=== PATIENT | male | born 1985 | race Caucasian/White ===

== ENCOUNTER 2021-12-27 13:46 | Emergency (ER) | payer SELFPAY ==
[~2021-12-27] VITALS: Ht 177.8 cm; Wt 121.6 kg
[2021-12-27 13:55] VITALS: BP 164/89
--- NOTE | 2021-12-27 14:45 | NUR ---
PT CALLED NOT FOUND IN LOBBY
--- NOTE | 2021-12-27 14:49 | NUR ---
PT CALLED, NOT FOUND IN LOBBY
--- NOTE | 2021-12-27 14:52 | NUR ---
PATIENT LEFT WITHOUT BEING SEEN BY DR. VELÁZQUEZ. NO FURTHER CARE PROVIDED FOR PATIENT.
== END 2021-12-27 14:52 | disposition left against medical advice (07) ==
LOC: MED 13:46
DX: R07.9 Chest pain, unspecified (principal); R20.0 Anesthesia of skin; Z53.21 Procedure and treatment not carried out due to patient leaving prior to being seen by health care provider
CPT/HCPCS: 93005

== ENCOUNTER 2022-05-10 22:06 | Emergency (ER) | payer BC ==
[~2022-05-10] VITALS: Ht 177.8 cm; Wt 118.8 kg
[2022-05-10 22:45] VITALS: BP 147/81
--- NOTE | 2022-05-10 22:48 | NUR ---
Patient taken to bed 12.
--- NOTE | 2022-05-10 23:00 | NUR ---
RECEIVED IN BED 12 WITH C/O C/O difficulty breathing x 4 days. Patient reported, had difficulty breathing, no cough, no congestion, no fever. 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
--- NOTE | 2022-05-10 23:10 | NUR ---
SWABS OBTAINED AND SENT TO LAB
[2022-05-11 00:38] LABS: RSV NEGATIVE (NEGATIVE)
[2022-05-11] MEDS ORDERED: TAM75 PO (00:49)
[2022-05-11] MEDS ORDERED: ACET-10509 PO (00:49)
[2022-05-11] MEDS ORDERED: ALBU0.0912 INH (00:49)
[2022-05-11 01:00] VITALS: BP 147/81
--- NOTE | 2022-05-11 01:00 | NUR ---
Patient discharged with v/s stable. Written and verbal after care instructions given and explained. Patient alert, oriented and verbalized understanding of instructions. Ambulatory with steady gait. All questions addressed prior to discharge. ID band removed. Patient advised to follow up with PMD. Rx of TYLENOL, PROVENTIL, TAMIFLU given. Patient educated on indication of medication including possible reaction and side effects. Opportunity to ask questions provided and answered.
== END 2022-05-11 01:00 | disposition home or self-care (01) ==
LOC: MED 22:06
DX: J10.1 Influenza due to other identified influenza virus with other respiratory manifestations (principal); Z20.822 Contact with and (suspected) exposure to COVID-19
CPT/HCPCS: 71045; 87420; 87426; 87804; 99284; Q0092

== ENCOUNTER 2023-01-02 21:02 | Emergency (ER) | payer BC ==
[~2023-01-02] VITALS: Ht 177.8 cm; Wt 122.5 kg
[~2023-01-02 21:02] MED LIST: ACET-10509 PO; ALBU0.0912 INH; TAM75 PO
[2023-01-02 21:34] VITALS: BP 129/91; PULSE 94; RESP 20; TEMP 98; O2SAT 98
[2023-01-02] MEDS ORDERED: KETOROLAC 30 MG/ML VIAL IVP ONE (22:25)
[2023-01-02] MEDS ORDERED: NACL 0.9% 1,000 ML IV ONE (22:25)
[2023-01-02 22:43] LABS: BASOPHILS % (AUTO) 0.6 % (0.0-2.0); EOSINOPHILS # (AUTO) 0.2 K/uL (0-0.4); EOSINOPHILS % (AUTO) 2.4 % (0.0-4.0); HEMATOCRIT 45.3 % (36-52); HEMOGLOBIN 15.7 g/dL (12.0-18.0); LYMPHOCYTES # (AUTO) 2.2 K/uL (2.0-11.5); LYMPHOCYTES % (AUTO) 24.9 % (20.5-51.1); MEAN CORPUSCULAR HEMOGLOBIN 30 pg (27-31); MEAN CORPUSCULAR HGB CONC 35 g/dL (33-37); MEAN CORPUSCULAR VOLUME 86.9 fL (80-94); MONOCYTES # (AUTO) 1.1 K/uL (0.8-1.0); MONOCYTES % (AUTO) 12.3 % (1.7-9.3); NEUTROPHILS # (AUTO) 5.2 K/uL (1.8-7.7); NEUTROPHILS % (AUTO) 59.8 % (42.2-75.2); PLATELET COUNT (AUTO) 223 K/uL (140-450); RED BLOOD CELL COUNT(AUTO) 5.21 MIL/uL (4.20-6.10); RED CELL DISTRIBUTION WIDTH 13.3 % (11.6-13.7); WHITE BLOOD COUNT (AUTO) 8.7 K/uL (4.8-10.8)
[2023-01-02 22:56] LABS: ALBUMIN 3.6 g/dL (3.4-5.0); ANION GAP 11.9 (8-16); CALCIUM 8.7 mg/dL (8.5-10.1); CARBON DIOXIDE 28.5 mmol/L (21-32); CREATININE 1.2 mg/dL (0.6-1.3); INR 0.96 (0.8-1.2); PARTIAL THROMBOPLASTIN TIME 31.2 secs (22-35.6); POTASSIUM 3.4 mmol/L (3.5-5.1); PROTHROMBIN TIME 10.1 secs (10.8-13.4); TOTAL BILIRUBIN 0.4 mg/dL (0.0-1.0); TOTAL PROTEIN, SERUM 8.3 g/dL (6.4-8.2)
[2023-01-02 23:54] LABS: APPEARANCE,URINE CLEAR (CLEAR); BILIRUBIN,URINE NEGATIVE (NEGATIVE); BLOOD, URINE NEGATIVE (NEGATIVE); COLOR,URINE YELLOW (YELLOW); LEUKOCYTE ESTERASE ,URINE NEGATIVE (NEGATIVE); NITRITE, URINE NEGATIVE (NEGATIVE); PROTEIN,URINE NEGATIVE (NEGATIVE); UGLUCOSE NEGATIVE (NEGATIVE)
[2023-01-03] MEDS ORDERED: DOXY-690 PO ×2 (00:12→00:28)
[2023-01-03] MEDS ORDERED: NAPR-54 PO ×2 (00:12→00:28)
[2023-01-03 00:19] VITALS: BP 125/69; PULSE 72; RESP 17; TEMP 98; O2SAT 98
== END 2023-01-03 00:19 | disposition home or self-care (01) ==
LOC: MED 21:22
DX: L03.311 Cellulitis of abdominal wall (principal); R59.1 Generalized enlarged lymph nodes; Z79.899 Other long term (current) drug therapy
CPT/HCPCS: 36415; 74176; 80053; 81003; 85025; 85610; 85730; 86886; 86900; 86901; 87491; 96361; 96374; 99285; J1885; J7030

== ENCOUNTER 2023-01-23 12:42 | Emergency (ER) | payer BC ==
[~2023-01-23] VITALS: Ht 180.3 cm; Wt 122.5 kg
[~2023-01-23 12:42] MED LIST changes: +DOXY-690 PO; +NAPR-54 PO
[2023-01-23 13:21] VITALS: BP 125/76; PULSE 68; RESP 20; TEMP 98; O2SAT 97
[2023-01-23] MEDS ORDERED: NACL 0.9% 1,000 ML IV ONE (13:45)
[2023-01-23] MEDS ORDERED: ACETAMINOPHEN EXTRA STRENGTH 500 MG TAB PO ONE (13:45)
[2023-01-23] MEDS ORDERED: KETOROLAC 15 MG/ML VIAL IVP ONE (14:05)
[2023-01-23 14:09] VITALS: BP 108/66; RESP 18; TEMP 98.2; O2SAT 94
[2023-01-23] MEDS ORDERED: HYDR25CA10 PO (14:13)
[2023-01-23] MEDS ORDERED: ACET-10509 PO (14:13)
[2023-01-23] MEDS ORDERED: IBUP-2213 PO (14:13)
[2023-01-23] MEDS ORDERED: ONDA-188 PO (14:13)
[2023-01-23 14:43] LABS: BASOPHILS % (AUTO) 0.8 % (0.0-2.0); EOSINOPHILS # (AUTO) 0.2 K/uL (0-0.4); EOSINOPHILS % (AUTO) 2.7 % (0.0-4.0); HEMATOCRIT 46.3 % (36-52); HEMOGLOBIN 15.8 g/dL (12.0-18.0); LYMPHOCYTES # (AUTO) 2.3 K/uL (2.0-11.5); LYMPHOCYTES % (AUTO) 39.1 % (20.5-51.1); MEAN CORPUSCULAR HEMOGLOBIN 30 pg (27-31); MEAN CORPUSCULAR HGB CONC 34 g/dL (33-37); MEAN CORPUSCULAR VOLUME 87.5 fL (80-94); MONOCYTES # (AUTO) 0.5 K/uL (0.8-1.0); NEUTROPHILS # (AUTO) 2.8 K/uL (1.8-7.7); NEUTROPHILS % (AUTO) 48.4 % (42.2-75.2); PLATELET COUNT (AUTO) 233 K/uL (140-450); RED BLOOD CELL COUNT(AUTO) 5.29 MIL/uL (4.20-6.10); RED CELL DISTRIBUTION WIDTH 13.1 % (11.6-13.7); WHITE BLOOD COUNT (AUTO) 5.8 K/uL (4.8-10.8)
[2023-01-23 15:08] LABS: ALBUMIN 3.9 g/dL (3.4-5.0); ANION GAP 12.7 (8-16); CALCIUM 8.6 mg/dL (8.5-10.1); CARBON DIOXIDE 30.1 mmol/L (21-32); CREATININE 1.1 mg/dL (0.6-1.3); MAGNESIUM 1.8 mg/dL (1.8-2.4); POTASSIUM 3.8 mmol/L (3.5-5.1); THYROID STIMULATING HORMONE 1.34 uIU/mL (0.34-3.74); TOTAL BILIRUBIN 0.3 mg/dL (0.0-1.0); TOTAL PROTEIN, SERUM 8.2 g/dL (6.4-8.2)
== END 2023-01-23 16:02 | disposition home or self-care (01) ==
LOC: MED 12:42
DX: R51.9 Headache, unspecified (principal); Z79.899 Other long term (current) drug therapy
CPT/HCPCS: 36415; 70450; 80053; 83735; 84443; 85025; 96361; 96374; 99285; J1885; J7030

== ENCOUNTER 2023-06-25 07:09 | Emergency (ER) | payer BC ==
[~2023-06-25] VITALS: Ht 177.8 cm; Wt 121.6 kg
[~2023-06-25 07:09] MED LIST changes: +HYDR25CA10 PO; +IBUP-2213 PO; +ONDA-188 PO
[2023-06-25 07:13] VITALS: BP 125/87; PULSE 71; RESP 19; TEMP 97.1; O2SAT 97
[2023-06-25 10:18] LABS: FLU A ANTIGEN negative (NEGATIVE)
[2023-06-25 10:19] LABS: FLU B ANTIGEN negative (NEGATIVE)
[2023-06-25] MEDS ORDERED: ALBU0.0912 IH (11:22)
[2023-06-25] MEDS ORDERED: LORA10TA19 PO (11:22)
[2023-06-25 11:33] VITALS: BP 123/77; PULSE 64; RESP 20; TEMP 98; O2SAT 99
== END 2023-06-25 11:34 | disposition home or self-care (01) ==
LOC: MED 07:09
DX: R06.02 Shortness of breath (principal); Z20.822 Contact with and (suspected) exposure to COVID-19; R19.7 Diarrhea, unspecified; R05.9 Cough, unspecified; Z79.899 Other long term (current) drug therapy
CPT/HCPCS: 71045; 99284